=== PATIENT | male | born 1970 ===

== ENCOUNTER 2024-11-25 05:00 | Day surgery (SDC) | payer OTHER ==
[2024-11-21 07:11] VITALS: BP 123/79
[2024-11-21 08:18] LABS: HEMATOCRIT 46.5 % (39.0-48.0); HEMOGLOBIN 15.3 g/dL (13-16.00); MEAN CELL VOLUME 90.9 fL (80.0-100.00); MEAN CORPUSCULAR HEMOGLOBIN 29.9 pg (27.00-32.0); MEAN CORPUSCULAR HGB CONC 32.9 g/dl (32.0-36.0); PLATELET COUNT 304 K/uL (150-450); RED BLOOD COUNT 5.12 M/uL (4.00-6.00); RED CELL DISTRIBUTION WIDTH 14.2 % (11.5-14.5); URINE APPEARANCE Clear; URINE BILIRRUBIN Negative (NEGATIVE); URINE BLOOD Negative; URINE COLOR Yellow; URINE KETONE Negative (NEGATIVE); URINE LEUKOCYTE Negative; URINE NITRATE Negative; URINE PROTEIN Negative (NEGATIVE); URINE UROBILINOGEN 0.2 E.U./dl
[2024-11-21 08:22] LABS: URINE BACTERIA 7.3 uL (0.0-1933)
[2024-11-21 08:42] LABS: URINE EPITHELIAL CELLS 0.6 uL (0.0-38.8); URINE GLUCOSE >=1000 MG/DL (NEGATIVE); URINE RBC 1.9 uL (0.0-20.8); URINE WBC 1.2 uL (0.0-23.2)
[2024-11-21 08:53] LABS: INR < 0.93; PARTIAL THROMBOPLASTIN TIME 30.5 SECONDS (22.0-34.0); PROTHROMBIN TIME 9.8 SECONDS (9.0-11.5)
[2024-11-21 08:54] LABS: ALBUMIN 3.8 gm/dL (3.4-5.0); CALCIUM 9.1 mg/dL (8.5-10.1); CREATININE SERUM 0.79 mg/dL (0.70-1.30); GFR 102.21; POTASSIUM 4.29 mEq/L (3.5-5.1)
[~2024-11-25] VITALS: Ht 162.6 cm; Wt 68.5 kg
[~2024-11-25 05:00] MED LIST: CARVEDILOL3.125 MG; COZAAR50 MG; JARDIANCE10 MG PO; LIPITOR40 M1 PO; METFORMIN HCL1000 M2 PO; PLAVIX75 MG PO
[2024-11-25] MEDS ORDERED: EPINEPHRINE HCL/PF 1 MG/ML AMPUL IR ONE (08:00)
[2024-11-25] MEDS ORDERED: CIPROFLOXACIN HCL 0.175 MG/DR DROPS OTIC ONE (08:00)
[2024-11-25] MEDS ORDERED: POVIDONE-IODINE 118 ML BOTT TOP ONE (08:00)
[2024-11-25] MEDS ORDERED: NEOMYCIN/BACITRACIN/POLYMYXINB 14 G TUBE TOP ONE (08:00)
[2024-11-25] MEDS ORDERED: CLINDAMYCIN PHOSPHATE 150 MG/ML (600mg) IV SCH (08:00)
[2024-11-25] MEDS ORDERED: CLEOCIN HCL300 MG PO (08:21)
[2024-11-25] MEDS ORDERED: CIPROFLOXACIN2.5 ML OTIC (08:21)
== END 2024-11-25 10:55 | disposition home or self-care (01) ==
LOC: CIR.AMB 05:00
PROVIDERS: ATTEND Otolaryngology Otology & Neurotology
DX: H72.02 Central perforation of tympanic membrane, left ear (principal); H90.A12 Conductive hearing loss, unilateral, left ear with restricted hearing on the contralateral side; Z88.1 Allergy status to other antibiotic agents; I10 Essential (primary) hypertension; J45.909 Unspecified asthma, uncomplicated; E11.9 Type 2 diabetes mellitus without complications; E78.5 Hyperlipidemia, unspecified; M19.90 Unspecified osteoarthritis, unspecified site; G62.9 Polyneuropathy, unspecified